=== PATIENT | female | born 1945 | race Two or more races ===

== ENCOUNTER 2017-11-02 11:29 | Emergency (ER) | END 2017-11-02 14:55 | disposition home or self-care (01) ==

== ENCOUNTER 2019-05-17 21:52 | Emergency (ER) | payer MEDICARE, OTHER ==
[~2019-05-17] VITALS: Ht 162.6 cm; Wt 86.1 kg
[~2019-05-17 21:52] MED LIST: ADV25050 INHALATION; ATEN50TA PO; AZIT500T2 PO; BUSP10TA2 PO; CLON0.2T5 PO; DICL100G37 TOP; DULO60CA59 PO; EZET10TA31 PO; FENO145T37 PO; ICOS1CAP PO; ISOS60TA PO; MECL-77 PO; MEMA28CA PO; NAPR-688 PO; NAPR-985 PO; PIOG30TA71 PO; POTA8CAP PO; RANO500T2 PO; SITA1TAB7 PO; TIOT18CA INHALATION; TRAM50TA2 PO; ZOLP10TA5 PO
[2019-05-17 22:04] VITALS: Ht 162.6 cm; Wt 86.1 kg
--- NOTE | 2019-05-18 01:31 | ERD ---
ER Documentation Chief Complaint Chief Complaint vomiting x 1 day HPI The patient is a 74-year-old female, presenting to the ER because of vomiting tonight, denies hematemesis, hematochezia, denies fever, chills, neck pain, chest pain, dyspnea, dizzy, diarrhea. She does not smoke nor drink Past medical history: Diabetes mellitus, asthma, chronic left knee pain, COPD, hypertension Past surgical history: Hysterectomy ROS All systems reviewed and are negative except as per history of present illness. Medications Home Meds Active Scripts Ondansetron (Ondansetron Odt) 4 Mg Tab.rapdis, 4 MG PO Q6H PRN for NAUSEA AND/OR VOMITING, #10 TAB Prov:MERCEDES DAWKINS MD 05/18/19 Naproxen* (Naprosyn*) 500 Mg Tablet, 500 MG PO BID PRN for PAIN AND/OR INFLAMMATION, #30 TAB Prov:SHELIA CELESTIN PA-C 11/02/17 Tramadol HCl (Tramadol HCl) 50 Mg Tablet, 50 MG PO Q4 PRN for PAIN, #20 TAB Prov:SHELIA CELESTIN PA-C 11/02/17 Azithromycin* (Zithromax* Tri-Eliot) 500 Mg Tablet, 500 MG PO DAILY, #1 PACKET Prov:NEO MCNAMARA 11/25/15 Reported Medications Isosorbide Mononitrate* (Isosorbide Mononitrate*) 60 Mg Tab.er.24h, 60 MG PO BID, TAB 11/23/15 Ranolazine* (Ranexa*) 500 Mg Tab.sr.12h, 500 MG PO Q12, TAB 11/23/15 Icosapent Ethyl (VASCEPA) 1 Gm Capsule, 2 GM PO BID, CAP 11/23/15 Potassium Chloride* (Potassium Chloride*) 8 Meq Capsule.er, 8 MEQ PO DAILY, CAP 11/23/15 Salmeterol Xinaf/Fluticasone* (Advair*) 250-50 Diskus Inhaler, 1 INH INHALATION BID, #1 INHALER 11/23/15 Diclofenac Sodium* (Voltaren* Gel) 1% -100 Gm Gel, 2 GM TOP TID, #1 TUB 11/23/15 Tiotropium Charlotte* (Spiriva*) 18 Mcg Cap.w.dev, 1 CAP INHALATION DAILY, #30 CAP 11/23/15 Memantine* (Namenda* XR) 28 Mg Cap.spr.24, 28 MG PO DAILY, TAB 11/23/15 Ezetimibe* (Zetia*) 10 Mg Tablet, 10 MG PO HS, TAB 11/23/15 Sitagliptin Phos-Metformin Hcl (Janumet) 50-1,000 Mg Tablet, 1 TAB PO BID, TAB 11/23/15 Duloxetine Hcl* (Duloxetine Hcl*) 60 Mg Capsule.dr, 60 MG PO DAILY, CAP 04/20/15 Naproxen* (Naproxen*) 500 Mg Tablet, 500 MG PO BID PRN for PAIN, TAB 04/20/15 Clonidine Hcl* (Clonidine Hcl*) 0.2 Mg Tablet, 0.2 MG PO Q8, TAB 04/20/15 Zolpidem Tartrate* (Zolpidem Tartrate*) 10 Mg Tablet, 10 MG PO HS PRN for INSOMNIA, TAB 04/20/15 Meclizine Hcl* (Meclizine Hcl*) 25 Mg Tablet, 25 MG PO DAILY, TAB 04/20/15 Buspirone Hcl* (Buspirone Hcl*) 10 Mg Tab, 10 MG PO DAILY, TAB 04/20/15 Atenolol* (Atenolol*) 50 Mg Tablet, 50 MG PO DAILY, TAB 04/20/15 Fenofibrate Nanocrystallized* (Fenofibrate*) 145 Mg Tablet, 145 MG PO QHS, TAB 04/20/15 Pioglitazone Hcl* (Pioglitazone Hcl*) 30 Mg Tablet, 30 MG PO DAILY, TAB 04/20/15 Allergies Allergies: Coded Allergies: No Known Allergy (Verified , 11/23/15) PMhx/Soc History of Surgery: Yes (HYSTERECTOMY) Anesthesia Reaction: No Hx Neurological Disorder: No Hx Respiratory Disorders: Yes (ASTHMA) Hx Cardiac Disorders: Yes Hx Psychiatric Problems: No Hx Miscellaneous Medical Probl: Yes (BILATERAL KNEE PAIN) Hx Alcohol Use: No Hx Substance Use: No Hx Tobacco Use: No Physical Exam Vitals Vital Signs Date Temp Pulse Resp B/P (MAP) Pulse Ox O2 O2 Flow FiO2 Time Delivery Rate 05/18/19 100 16 108/72 98 Room Air 04:44 (84) 05/17/19 98.2 115 20 162/80 96 22:04 (107) Physical Exam Const: No acute distress. Head: Atraumatic. Eyes: Normal Conjunctiva. ENT: Normal External Ears, Nose and Mouth. Neck: Full range of motion. No meningismus. Resp: Clear to auscultation bilaterally. Cardio: Regular rate and rhythm. Abd: Soft, non distended, normal bowel sounds, non tender. no right lower quadrant/right upper quadrant/epigastric/CVA tenderness Skin: No petechiae or rashes. Back: No midline or flank tenderness. Ext: No cyanosis, or edema. Neur: Awake and alert. No focal deficit Psych: Normal Mood and Affect. Result Diagram: 05/18/19 0136 05/18/19 0136 Results 24 hrs Laboratory Tests Test 05/18/19 01:36 05/18/19 01:50 White Blood Count 11.4 10^3/ul Red Blood Count 5.78 10^6/ul Hemoglobin 15.2 g/dl Hematocrit 48.7 % Mean Corpuscular Volume 84.3 fl Mean Corpuscular Hemoglobin 26.3 pg Mean Corpuscular Hemoglobin Concent 31.2 g/dl Red Cell Distribution Width 14.3 % Platelet Count 324 10^3/UL Mean Platelet Volume 9.3 fl Immature Granulocytes % 0.400 % Neutrophils % 63.8 % Lymphocytes % 24.2 % Monocytes % 5.9 % Eosinophils % 4.8 % Basophils % 0.9 % Nucleated Red Blood Cells % 0.0 /100WBC Immature Granulocytes # 0.040 10^3/ul Neutrophils # 7.3 10^3/ul Lymphocytes # 2.8 10^3/ul Monocytes # 0.7 10^3/ul Eosinophils # 0.5 10^3/ul Basophils # 0.1 10^3/ul Nucleated Red Blood Cells # 0.0 10^3/ul Sodium Level 146 mmol/L Potassium Level 3.9 mmol/L Chloride Level 103 mmol/L Carbon Dioxide Level 31 mmol/L Anion Gap 12 Blood Urea Nitrogen 34 mg/dl Creatinine 1.54 mg/dl Est Glomerular Filtrat Rate mL/min mL/min Glucose Level 137 mg/dl Calcium Level 10.7 mg/dl Total Bilirubin 0.5 mg/dl Direct Bilirubin 0.00 mg/dl Indirect Bilirubin 0.5 mg/dl Aspartate Amino Transf (AST/SGOT) 27 IU/L Alanine Aminotransferase (ALT/SGPT) 14 IU/L Alkaline Phosphatase 92 IU/L Troponin I 0.022 ng/ml Total Protein 8.7 g/dl Albumin 4.7 g/dl Globulin 4.00 g/dl Albumin/Globulin Ratio 1.17 Lipase 329 U/L Bedside Urine pH (LAB) 5.5 Bedside Urine Protein (LAB) 3+ Bedside Urine Glucose (UA) Negative Bedside Urine Ketones (LAB) Trace Bedside Urine Blood Trace-intact Bedside Urine Nitrite (LAB) Negative Bedside Urine Leukocyte Esterase (L Trace Current Medications Medications Dose Sig/Gideon Start Time Status Last (Trade) Ordered Route PRN Stop Time Admin Dose Reason Admin Sodium 500 ml @ Q1H ONCE 05/18/19 DC 05/18/19 Chloride 500 mls/hr IV 03:30 04:39 05/18/19 04:29 Ondansetron 4 mg ONCE STAT 05/18/19 DC 05/18/19 HCl (Zofran IV 03:45 04:39 Inj) 05/18/19 03:46 Sodium 500 ml @ Q1H ONCE 05/18/19 05/18/19 Chloride 500 mls/hr IV 05:00 04:49 05/18/19 05:59 Procedures/MDM MEDICAL MAKING DECISION: The patient is a 74-year-old female, presenting with acute vomiting of unclear etiology, acute dehydration. She was treated with Zofran 4 mg IV for nausea, 500 ml normal saline x2 for acute dehydration with good response, is stable for outpatient follow-up The differential diagnoses considered include but are not limited to cholelithiasis, cholecystitis, choledocholithiasis, cholangitis, pancreatitis, hepatitis, gastritis, peptic ulcer disease, gastric ulcer, appendicitis, cystitis, diverticulitis, partial small bowel obstruction. Departure Diagnosis: Primary Impression: Abdominal pain Additional Impression: Dehydration Condition: Good Comments I discussed the findings with the patient. I advised the patient to follow-up with the primary physician in about 1 days, sooner if needed and return if any concern. Disclaimer: Inadvertent spelling and grammatical errors are likely due to EHR/dictation software use and do not reflect on the overall quality of patient care. Also, please note that the electronic time recorded on this note does not necessarily reflect the actual time of the patient encounter. MERCEDES DAWKINS MD May 18, 2019 01:31
[2019-05-18] MEDS ORDERED: SOD CHLORIDE 0.9% 500 ML IV ONE ×2 (03:30→05:00)
[2019-05-18] MEDS ORDERED: ONDANSETRON 4 MG INJ IV STA (03:45)
[2019-05-18] MEDS ORDERED: ONDA4TAB14 PO (04:14)
[2019-05-18 06:01] VITALS: BP 127/88; PULSE 96; RESP 20
== END 2019-05-18 06:02 | disposition home or self-care (01) ==
LOC: E/R 21:52
DX: E86.0 Dehydration (principal); R10.9 Unspecified abdominal pain; I10 Essential (primary) hypertension; E11.9 Type 2 diabetes mellitus without complications; J44.9 Chronic obstructive pulmonary disease, unspecified; Z79.84 Long term (current) use of oral hypoglycemic drugs
CPT/HCPCS: 36415; 80053; 81003; 83690; 84484; 85025; 93005; 96374; 99284; J2405; J7040

== ENCOUNTER 2019-07-07 09:33 | Emergency (ER) | payer MEDICARE, OTHER ==
[~2019-07-07] VITALS: Ht 157.5 cm; Wt 89.0 kg
[~2019-07-07 09:33] MED LIST changes: +IBUP-1542 PO; +ONDA4TAB14 PO
[2019-07-07 09:36] VITALS: Ht 157.5 cm; Wt 89.0 kg
[2019-07-07] MEDS ORDERED: IBUPROFEN 600 MG TAB PO ONE (11:00)
[2019-07-07] MEDS ORDERED: LIDOCAINE 1% (MDV) 20 ML INJ SC ONE (12:00)
[2019-07-07 12:25] VITALS: BP 142/70; PULSE 71; RESP 18
== END 2019-07-07 12:26 | disposition home or self-care (01) ==
LOC: FTE 09:33
DX: M54.5 Low back pain (principal); M54.6 Pain in thoracic spine; I10 Essential (primary) hypertension; J45.909 Unspecified asthma, uncomplicated; Z79.84 Long term (current) use of oral hypoglycemic drugs; Z87.891 Personal history of nicotine dependence
CPT/HCPCS: 71045; 72125; 72128; 72131; 73030; 93005